=== PATIENT | female | born 2000 | race Caucasian/White ===

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

== ENCOUNTER 2018-06-05 11:37 | Emergency (ER) | payer OTHER ==
[~2018-06-05] VITALS: Wt 70.0 kg
[~2018-06-05 11:37] MED LIST changes: +IBUP-1542 PO; +ONDA8TAB14 PO
[2018-06-05 11:39] VITALS: BP 140/79; PULSE 89; RESP 18
[2018-06-05] MEDS ORDERED: DOXY100T21 PO (12:00)
[2018-06-05] MEDS ORDERED: CLIN45GE TP (12:00)
--- NOTE | 2018-06-05 12:02 | ERD ---
ER Documentation Chief Complaint Chief Complaint ACNE WORSEN X 2 WEEKS HPI 18-year-old female presents with a history of acting worsening on some nodules for the last 2 weeks patient is a fevers, discharge. Treated in the past with unspecified cream without relief. There was a nighttime cream causing burning suggestive of Retin-A. ROS All systems reviewed and are negative except as per history of present illness. Medications Home Meds Active Scripts Clindamycin Phos/Benzoyl Perox (Duac Gel) 45 Gm Gel.sr.gm., 1 APPLIC TP BID for 30 Days, TUB Prov:COREY HARRINGTON MD 06/05/18 Doxycycline Monohydrate* (Doxycycline Monohydrate*) 100 Mg Tablet, 100 MG PO BID for 14 Days, TAB Prov:COREY HARRINGTON MD 06/05/18 Ibuprofen* (Motrin*) 600 Mg Tab, 600 MG PO Q6, #20 TAB Prov:COREY HARRINGTON MD 08/18/16 Ondansetron (Ondansetron Odt) 8 Mg Tab.rapdis, 8 MG PO Q6H PRN for NAUSEA AND/OR VOMITING, #8 TAB Prov:COREY HARRINGTON MD 08/18/16 Cetirizine Hcl* (Zyrtec*) 10 Mg Capsule, 10 MG PO DAILY, #14 TAB.CHEW Prov:COREY HARRINGTON MD 11/18/14 Polymyxin B Sulfate-TMP* (Polymyxin B-TMP Eye Drops*) 10 Ml Drops, 1 DROP BOTH EYES QID for 7 Days, EA Prov:COREY HARRINGTON MD 11/18/14 Sulfamethoxazole-Trimethoprim* (Sulfamethoxazole-Trimethoprim* DS) 800-160 Mg Tablet, 1 TAB PO BID for 7 Days, TAB Prov:MARIELA RUIZ NP 10/10/14 Cephalexin* (Cephalexin*) 500 Mg Capsule, 500 MG PO BID for 7 Days, CAP Prov:MARIELA RUIZ NP 10/10/14 Allergies Allergies: Coded Allergies: No Known Allergy (Unverified , 03/17/14) PMhx/Soc Medical and Surgical Hx: pt denies Medical Hx, pt denies Surgical Hx History of Surgery: No Anesthesia Reaction: No Hx Neurological Disorder: No Hx Respiratory Disorders: No Hx Cardiac Disorders: No Hx Psychiatric Problems: No Hx Miscellaneous Medical Probl: No Hx Alcohol Use: No Hx Substance Use: No Hx Tobacco Use: No Smoking Status: Never smoker FmHx Family History: No diabetes, No coronary disease, No other Physical Exam Vitals Vital Signs Date Temp Pulse Resp B/P (MAP) Pulse Ox O2 O2 Flow FiO2 Time Delivery Rate 06/05/18 98.2 89 18 140/79 99 11:39 (99) Physical Exam Const: No acute distress Head: Atraumatic Eyes: Normal Conjunctiva ENT: Normal External Ears, Nose and Mouth. Neck: Full range of motion. No meningismus. Resp: Clear to auscultation bilaterally Cardio: Regular rate and rhythm, no murmurs Abd: Soft, non tender, non distended. Normal bowel sounds Skin: No petechiae or rashes. Scattered pustules nodular acne diffusely on the forehead, cheeks and chin. No significant induration, streaking or warmth or fluctuance. Back: No midline or flank tenderness Ext: No cyanosis, or edema Neur: Awake and alert Psych: Normal Mood and Affect Procedures/MDM Patient presents with signs of exacerbation of acne vulgaris. Is no signs of facial cellulitis, abscess to be drained today, additional complications. Will treat with doxycycline, gentamicin/peroxide, primary care follow-up and return precautions. The patient was stable with no new complaints during the ER course. Clinically, there is no current evidence to suggest meningitis, sepsis, acute abdomen, pneumonia, stroke, acute coronary syndrome, pulmonary embolism, aortic dissection or any other emergent condition appearing to require further evaluation or hospitalization. Patient counseled regarding my diagnostic impression and care plan. Prior to discharge all questions answered. Pt agrees with treatment plan and understands strict return precautions. Pt is instructed to follow up with primary care provider within 24-48 hours. Precautionary instructions provided including instructions to return to the ER if not improving or for any worsening or changing symptoms or concerns. Departure Diagnosis: Primary Impression: Acne Acne type: acne vulgaris Qualified Codes: L70.0 - Acne vulgaris Condition: Stable Patient Instructions: Acne Additional Instructions: Recommend primary care dermatology for ongoing acne treatment. Recheck otherwise for worsening redness, fevers, new symptoms. COREY HARRINGTON MD Jun 05, 2018 12:02
== END 2018-06-05 12:36 | disposition home or self-care (01) ==
LOC: FTE 11:37
DX: L70.0 Acne vulgaris (principal)
CPT/HCPCS: 99283